=== PATIENT | female | born 1955 | race Caucasian/White ===

== ENCOUNTER → 2025-06-14 10:01 | Outpatient (REF) | payer MEDICARE, OTHER, SELFPAY | LOC: RAD 10:01 | PROVIDERS: ATTENDING PHYSICIAN Urology | DX: N39.3 Stress incontinence (female) (male) (principal); N39.41 Urge incontinence; N95.8 Other specified menopausal and perimenopausal disorders; N13.30 Unspecified hydronephrosis; M62.89 Other specified disorders of muscle | CPT/HCPCS: 76770 ==